=== PATIENT | female | born 1950 | race Caucasian/White ===

== ENCOUNTER 2018-11-20 07:02 | Emergency (ER) | payer MEDICARE, BC ==
[2018-11-20] MEDS ORDERED: Ketorolac 60 MG/2 ML SDV IM ONE (07:38)
--- NOTE | 2018-11-20 07:41 | EDM.PDOC ---
ED HPI GENERAL MEDICAL PROBLEM - General Chief Complaint: Headache Stated Complaint: HEADACHE Time Seen by Provider: 11/20/18 07:34 Source of Information: Reports: Patient, Family, RN Notes Reviewed History Limitations: Reports: No Limitations - History of Present Illness INITIAL COMMENTS - FREE TEXT/NARRATIVE: 68-year-old female presents to the emergency department today complaint of sinus pressure and pain, she states she does have a history of sinus problems and is currently being treated with sinusitis and is on antibiotics. Denies any fevers problems with vision nausea vomiting shortness breath or chest pain Headache Pain Score (Numeric/FACES): 10 - Related Data Allergies Allergy/AdvReac Type Severity Reaction Status Date / Time Sulfa (Sulfonamide Allergy Cannot Verified 11/20/18 07:19 Antibiotics) Remember Home Meds: Home Meds Cefdinir 300 mg PO Q12HR 11/20/18 [History] Citalopram Hydrobromide [Celexa] 40 mg PO DAILY 11/20/18 [History] Fluticasone Propionate [Flonase] 16 gm NS ASDIRECTED 11/20/18 [History] Levothyroxine Sodium 137 mcg PO ACBREAKFAST 11/20/18 [History] Omeprazole 20 mg PO DAILY 11/20/18 [History] Simvastatin 5 mg PO BEDTIME 11/20/18 [History] hydroCHLOROthiazide [Hydrochlorothiazide] 25 mg PO DAILY 11/20/18 [History] Past Medical History HEENT History: Reports: Sinusitis Cardiovascular History: Reports: High Cholesterol, Hypertension Gastrointestinal History: Reports: Cholelithiasis, GERD, Hiatal Hernia [employer]UMENT [employer]ER History: Reports: , Spontaneous Musculoskeletal History: Reports: Fracture Other Musculoskeletal History: shoulder and wrist Psychiatric History: Reports: Anxiety Endocrine/Metabolic History: Reports: Hypothyroidism - Past Surgical History GI Surgical History: Reports: Cholecystectomy Musculoskeletal Surgical History: Reports: Shoulder Surgery Social & Family History - Tobacco Use Smoking Status *Q: Never Smoker - Caffeine Use Caffeine Use: Reports: Soda - Recreational Drug Use Recreational Drug Use: No ED ROS ENT - Review of Systems Review Of Systems: See Below Constitutional: Reports: No Symptoms HEENT: Reports: Sinus Problem Respiratory: Reports: No Symptoms Cardiovascular: Reports: No Symptoms ED EXAM, ENT - Physical Exam Exam: See Below Exam Limited By: No Limitations General Appearance: Alert, Mild Distress Nose: Normal Inspection, Normal Mucousa, No Blood Mouth/Throat: Normal Inspection, Normal Gums, Normal Lips, Normal Oropharynx, Normal Teeth Head: Normocephalic, Sinus Tenderness Neck: Normal Inspection, Supple, Non-Tender, Full Range of Motion Respiratory/Chest: No Respiratory Distress, Lungs Clear, Normal Breath Sounds, No Accessory Muscle Use, Chest Non-Tender Cardiovascular: Regular Rate, Rhythm, No Murmur GI/Abdominal: Soft, Non-Tender Course - Vital Signs Last Recorded V/S: Last Vital Signs Temp 97.1 F 11/20/18 07:13 Pulse 77 11/20/18 07:13 Resp 16 11/20/18 07:13 BP 148/83 H 11/20/18 07:13 Pulse Ox 98 11/20/18 07:13 - Orders/Labs/Meds Meds: Medications Discontinued Medications Generic Name Dose Route Start Last Admin Trade Name Sarai PRN Reason Stop Dose Admin Ketorolac Tromethamine 60 mg 11/20/18 07:38 11/20/18 07:50 Toradol IM 11/20/18 07:39 60 mg ONETIME ONE Administration Departure - Departure Time of Disposition: 08:32 Disposition: Home, Self-Care 01 Condition: Fair Clinical Impression: Sinusitis - Discharge Information Instructions: Sinusitis, Adult, [id number] Referrals: PCP,None [Primary Care Provider] - Forms: ED Department Discharge Additional Instructions: Complete course of antibiotics are initiated, use ibuprofen as needed for pain control, Please followup with your primary care provider in 3-5 days if not better, please call return to the emergency department with worsening of symptoms. - Assessment/Plan Plan: Assessment Acuity = acute Site and laterality = sinusitis Etiology = probable bacterial cause Manifestations = frontal and maxillary pain Location of injury = Home Lab values = none Plan Good improvement with Toradol 60 mg times one recommend using ibuprofen as needed for pain control complete antibiotics already initiated This note was dictated using [employer]apine voice recognition software please call with any questions on syntax or grammar.
== END 2018-11-20 08:48 | disposition home or self-care (01) ==
LOC: JP.ED 07:02
DX: J32.9 Chronic sinusitis, unspecified (principal); E78.00 Pure hypercholesterolemia, unspecified; E03.9 Hypothyroidism, unspecified; I10 Essential (primary) hypertension; F41.9 Anxiety disorder, unspecified; Z79.899 Other long term (current) drug therapy
CPT/HCPCS: 96372; 99283; J1885